=== PATIENT | female | born 1980 | race Caucasian/White ===

== ENCOUNTER 2020-04-02 17:32 | Emergency (ER) | payer BC ==
[~2020-04-02] VITALS: Ht 172.7 cm; Wt 68.2 kg
[2020-04-02] MEDS ORDERED: ketorolac trometh inj. 60 MG/2 ML VIAL IM ONE (18:35)
[2020-04-02] MEDS ORDERED: LIDOcaine 5% patch TP ONE (18:35)
[2020-04-02] MEDS ORDERED: PRED20TA PO (19:30)
[2020-04-02] MEDS ORDERED: VAL5T PO (19:30)
[2020-04-02 19:39] VITALS: BP 144/100
== END 2020-04-02 19:40 | disposition home or self-care (01) ==
LOC: ER 17:33
DX: M54.12 Radiculopathy, cervical region (principal); M54.2 Cervicalgia; Z79.899 Other long term (current) drug therapy
CPT/HCPCS: 72125; 96372; 99284; J1885